=== PATIENT | female | born 1955 | race Two or more races ===

== ENCOUNTER 2020-02-16 16:00 | Inpatient (IN) | payer MEDICARE, MEDICAID ==
[~2020-02-16] VITALS: Ht 152.4 cm; Wt 85.5 kg
[2020-02-16] MEDS ORDERED: ACETAMINOPHEN 500 MG TAB PO ONE (16:15)
[2020-02-16 16:46] LABS: Hematocrit 21.4 % (36.0-46.0); Platelet Count (auto) 113 10^3/uL (140-450); Red Blood Cells 2.19 10^6/uL (4.0-5.20)
[2020-02-16 16:47] LABS: Hemoglobin 7.2 g/dL (12.2-16.2); Mean Corpuscular Hemoglobin 32.9 pg (28.0-32.0); Mean Corpuscular Hgb Conc. 33.8 g/dL (32.0-36.0); Mean Corpuscular Volume 97.3 fL (80.0-100.0); Red Cell Distribution Width 14.5 % (11.8-14.3)
[2020-02-16 17:01] LABS: Alanine Aminotransferase 15 U/L (13-56); Albumin 2.3 g/dL (3.4-5.0); Anion Gap 13 (5-15); Aspartate Aminotransferase 8 U/L (15-37); BUN/Creatinine Ratio 11.3; Calcium 7.6 mg/dL (8.5-10.1); Carbon Dioxide 23 mmol/L (21-32); Chloride 93 mmol/L (98-107); GFR African American 7 mL/min; GFR Non-African American 5 mL/min; Glucose 146 mg/dL (74-106); Potassium 4.8 mmol/L (3.5-5.1); Sodium 129 mmol/L (136-145)
[2020-02-16 17:06] LABS: Alkaline Phosphatase 65 U/L (45-117); Bilirubin, Total 0.3 mg/dL (0.2-1.0); Total Protein 6.5 g/dL (6.4-8.2)
[2020-02-16 17:09] LABS: Blood Urea Nitrogen 90 mg/dL (7-18)
[2020-02-16 17:33] LABS: White Blood Cell 0.4 10^3/uL (4.4-10.8)
[2020-02-16 17:34] LABS: Band Neutrophils % (manual) 0; Basophils % (manual) 0 (0.0-2.0); Blast Cells 0; Eosinophils % (manual) 9 (0-7); Lymphocytes % (manual) 67 (10.0-50.0); Metamyelocytes % 0; Monocytes % (manual) 15 (0-12); Myelocytes % 0; Promyelocytes % 0; Reactive Lymphocytes 2
[2020-02-16] MEDS ORDERED: SODIUM CHLORIDE 0.9% 500 ML IVB ONE (18:07)
[2020-02-16] MEDS ORDERED: ONDANSETRON HCL 4 MG/2 ML VIAL IV ONE (18:15)
[2020-02-16] MEDS ORDERED: MORPHINE SULF INJ 2 MG/ML SYRINGE 1ML IV ONE (18:15)
[2020-02-16] MEDS ORDERED: metroNIDAZOLE 500MG/100ML 100 ML IV ONE (19:45)
[2020-02-16] MEDS ORDERED: cefTRIAXone 1GM/50ML D5W 50 ML IV ONE (19:45)
[2020-02-16 19:46] LABS: INR 1.22 (0.9-1.15); Partial Thromboplastin Time 42.4 sec (23.64-32.05)
[2020-02-16 20:12] LABS: Amylase 27 U/L (25-115); Lipase 65 U/L (73-393); Magnesium 2.5 mg/dL (1.6-2.6)
[2020-02-16] MEDS ORDERED: ONDANSETRON HCL 4 MG/2 ML VIAL IV PRN (20:45)
[2020-02-16] MEDS ORDERED: DEXTROSE (50%) 50ML SYRG IV PRN (20:45)
[2020-02-16] MEDS ORDERED: HYDROcodone-ACET 5/325MG TAB PO PRN (20:45)
[2020-02-16] MEDS ORDERED: DOCUSATE SOD 100 MG CAP PO PRN (20:45)
[2020-02-16] MEDS: SODIUM CHLORIDE 0.9% 1,000 ML IV SCH (21:01)
[2020-02-16 23:15] VITALS: BP 118/41
[2020-02-16 23:20] VITALS: BP 128/41
--- NOTE | 2020-02-16 23:20 | NUR ---
Telemetry admit from ER DESTINEY NIEVESSIVA admitted to Telemetry unit after SBAR received. Patient oriented to Michelle Rosario, primary RN, unit, room, bed, and unit policies regarding patient care and visiting hours. Patient now on continuous telemetry monitoring, tele box # 59 and telemetry reading on arrival to unit is 101 . Patient placed on bedside oxygen, weighed by bedscale and encouraged to call if they need something. All questions and concerns addressed, patient verbalized understanding. Note:
[2020-02-16] MEDS: ACETAMINOPHEN 325 MG TAB PO PRN (23:22)
--- NOTE | 2020-02-16 23:22 | NUR ---
pt. t- 100.8, tylenol given po as ordered, cooling measures applied, blanket removed.
[2020-02-16] MEDS: ACCU-CHEK COMFORT CURVE STRIP VI SCH (23:42)
[2020-02-16] MEDS: InsuLIN REG 1unit/0.01ml Soln (100units/ml) SC SCH (23:42)
[2020-02-16] MEDS: metroNIDAZOLE 500MG/100ML 100 ML IV SCH (23:42)
[2020-02-17] VITALS (9 sets, daily range): BP systolic 104–118; BP diastolic 49–61
[2020-02-17] MEDS ORDERED: MULT-647 OR (00:41)
[2020-02-17] MEDS ORDERED: SEVE800T8 PO (00:41)
[2020-02-17] MEDS ORDERED: FOLI1TAB6 PO (00:41)
[2020-02-17] MEDS ORDERED: DOCU-94 PO (00:41)
[2020-02-17] MEDS ORDERED: PROC10TA2 PO (00:41)
[2020-02-17] MEDS ORDERED: WARF6TAB21 PO (00:41)
[2020-02-17] MEDS ORDERED: CALC0.5C PO (00:41)
[2020-02-17] MEDS ORDERED: MET50T PO (00:41)
[2020-02-17] MEDS ORDERED: ACET-1156 PO (00:41)
[2020-02-17] MEDS ORDERED: DEX4T PO (00:41)
[2020-02-17] MEDS ORDERED: ONDA-143 PO (00:41)
--- NOTE | 2020-02-17 01:17 | NUR ---
pt. t- 100.9, cooling measures continously, to keep monitor.
[2020-02-17] MEDS: MORPHINE SULF INJ 2 MG/ML SYRINGE 1ML IV PRN ×2 (04:04→21:35)
[2020-02-17] MEDS: metroNIDAZOLE 500MG/100ML 100 ML IV SCH ×3 (05:41→17:50)
[2020-02-17] MEDS: ACCU-CHEK COMFORT CURVE STRIP VI SCH ×3 (05:42→17:50)
[2020-02-17] MEDS: InsuLIN REG 1unit/0.01ml Soln (100units/ml) SC SCH ×3 (05:42→17:50)
[2020-02-17 05:47] LABS: Mean Corpuscular Volume 98.8 fL (80.0-100.0)
[2020-02-17 05:50] LABS: Hematocrit 18.8 % (36.0-46.0); Mean Corpuscular Hemoglobin 33.1 pg (28.0-32.0); Mean Corpuscular Hgb Conc. 33.5 g/dL (32.0-36.0); Platelet Count (auto) 79 10^3/uL (140-450); Red Cell Distribution Width 14.4 % (11.8-14.3)
[2020-02-17 06:00] LABS: BUN/Creatinine Ratio 10.8; Calcium 7.3 mg/dL (8.5-10.1); Potassium 4.8 mmol/L (3.5-5.1)
[2020-02-17 06:04] LABS: Hemoglobin 6.3 g/dL (12.2-16.2); White Blood Cell 0.4 10^3/uL (4.4-10.8)
[2020-02-17 06:06] LABS: Basophils % (manual) 0 (0.0-2.0); Blast Cells 0; Metamyelocytes % 0; Myelocytes % 0; Promyelocytes % 0; Reactive Lymphocytes 0
--- NOTE | 2020-02-17 06:11 | NUR ---
paged hospitalist re: pt. critical lab. hgb. 6.3, bun- 89, wbc- 0.4, waiting to call back.
--- NOTE | 2020-02-17 06:27 | NUR ---
hospitalist called back, made order and carried out.
--- NOTE | 2020-02-17 07:30 | NUR ---
Opening Shift Note Assuming care of patient at this time. Patient is awake and alert. Patient denies pain. Patient shows no signs or symptoms of distress or shortness of breath. Bed is locked and lowered with side rails up x2. Instructed patient on the plan of care for today and to call for assistance as needed. Call light within reach. Will continue to round hourly and as needed.
[2020-02-17 07:40] LABS: Band Neutrophils % (manual) 2; Eosinophils % (manual) 9 (0-7); Lymphocytes % (manual) 58 (10.0-50.0); Monocytes % (manual) 14 (0-12)
[2020-02-17] MEDS ORDERED: FILGRASTIM (TBO) 300 MCG/0.5 ML SYRG SC SCH (10:00)
[2020-02-17] MEDS: cefTRIAXone 1GM/50ML D5W 50 ML IV SCH (10:46)
[2020-02-17] MEDS: ACETAMINOPHEN 325 MG TAB PO PRN ×2 (11:15→17:50)
[2020-02-17] MEDS: PERITONEAL DIALYSIS 2.5% SOLN 2,000 ML IP SCH ×2 (12:00→18:30)
--- NOTE | 2020-02-17 12:00 | NUR ---
Peritoneal Dialysis Peritoneal dialysis done at this time. No fluid indwelling. Fluid given as ordered. Patient tolerated procedure well. No distress noted.
--- NOTE | 2020-02-17 12:00 | NUR ---
Peritoneal Dialysis Peritoneal Dialysis initiated. Patient had no initial output. Patient now has 1885 mL of fluid indwelling.
--- NOTE | 2020-02-17 12:00 | NUR ---
No blood administration Blood administration on hold at this time as patient currently has a fever that has increased after Tylenol administration. Will wait until temperature has decreased.
--- NOTE | 2020-02-17 13:02 | NUR ---
Transfer Spoke with Dr. Dudley regarding patient's family request to transfer patient to [facility]. Patient is unstable for transfer at this time due to patient having a Hgb of 6.3. Patient will need 2 units of blood. Spoke with son, Duane, regarding patient's transfer. Duane is aware of patient's status and is agreeable for patient to stay today and the process of being transferred being addressed tomorrow.
--- NOTE | 2020-02-17 14:59 | NUR ---
Blood Transfusion Blood Transfusion started at this time. Baseline vitals obtained.
--- NOTE | 2020-02-17 16:43 | NUR ---
Transfusion Ended Transfusion Ended at this time. Patient is uncomfortable and is having chills. Will notify Dr. Dudley.
--- NOTE | 2020-02-17 16:44 | NUR ---
Re: Transfusion Patient is beginning to have chills and fever is persisting. Notified Dr. Dudley. New orders given for Benadryl and next transfusion time.
[2020-02-17] MEDS ORDERED: diphenhdrAMINE HCL 50 MG/1 ML VL IV ONE (17:00)
[2020-02-17] MEDS: SODIUM CHLORIDE 0.9% 1,000 ML IV SCH (17:52)
--- NOTE | 2020-02-17 19:00 | NUR ---
OPENING NOTE Received report from day shift RN. Patient is A&O X's 4 with no s/s of distress and reports no pain at this time. Educated patient on POC and to use call light when in need of any type of assistance. Patient verbalized understanding. Bed is in lowest/locked position with side rails up X's 2 and call light is within reach of patient. Will continue care.
--- NOTE | 2020-02-17 19:35 | NUR ---
Peritoneal Dialysis Complete Peritoneal dialysis complete at this time. Patient had an output of 1840, weighed by dialysis scale. Next bag infused weighing in at 1880. Awaiting removal of that fluid in approximately 6 hours.
--- NOTE | 2020-02-17 19:36 | NUR ---
Closing Shift Note Patient resting in bed. No distress noted. Second round of peritoneal dialysis complete. casino shift manager RN aware to send patient's peritoneal fluid to micro for studies. Report given. Will endorse care to the night guard RN.
--- NOTE | 2020-02-17 21:10 | NUR ---
BLOOD TRANSFUSION blood transfusion started at this time. Baseline v.s obtained.
[2020-02-18] VITALS (7 sets, daily range): BP systolic 100–124; BP diastolic 51–63
[2020-02-18] MEDS: PERITONEAL DIALYSIS 2.5% SOLN 2,000 ML IP SCH ×6 (00:21→23:58)
[2020-02-18] MEDS: metroNIDAZOLE 500MG/100ML 100 ML IV SCH ×5 (00:21→23:48)
--- NOTE | 2020-02-18 00:30 | NUR ---
PERITONEAL DIALYSIS Removing peritoneal fluid at this time. Patient tolerating well. Will continue care.
--- NOTE | 2020-02-18 00:30 | NUR ---
PERITONEAL DIALYSIS REMOVAL patient had output of about 1700, weighed by dialysis scale. Next bag infusing weighing in at 1700. awaiting removal of that fluid in about 6 hours.
[2020-02-18] MEDS: ACCU-CHEK COMFORT CURVE STRIP VI SCH ×5 (00:45→23:59)
[2020-02-18] MEDS: MORPHINE SULF INJ 2 MG/ML SYRINGE 1ML IV PRN ×4 (03:48→22:19)
[2020-02-18] MEDS: SODIUM CHLORIDE 0.9% 1,000 ML IV SCH ×2 (05:22→23:35)
[2020-02-18] MEDS: InsuLIN REG 1unit/0.01ml Soln (100units/ml) SC SCH ×5 (05:23→23:58)
[2020-02-18 05:39] LABS: Platelet Count (auto) 87 10^3/uL (140-450); Red Cell Distribution Width 17.5 % (11.8-14.3)
[2020-02-18 05:41] LABS: Hematocrit 24.2 % (36.0-46.0); Hemoglobin 8.2 g/dL (12.2-16.2); Mean Corpuscular Hemoglobin 31.9 pg (28.0-32.0); Mean Corpuscular Volume 93.7 fL (80.0-100.0); Red Blood Cells 2.58 10^6/uL (4.0-5.20)
--- NOTE | 2020-02-18 05:41 | NUR ---
PD patient had output of about 1700. weighed by dialysis scale. Next bag to infuse weighing in about 1700. Awaiting removal of that fluid in 6 hours.
[2020-02-18 05:54] LABS: Calcium 7.2 mg/dL (8.5-10.1); Potassium 4.2 mmol/L (3.5-5.1)
[2020-02-18 06:00] LABS: Albumin 1.8 g/dL (3.4-5.0); BUN/Creatinine Ratio 9.8; Bilirubin, Total 0.3 mg/dL (0.2-1.0); Total Protein 5.4 g/dL (6.4-8.2)
[2020-02-18 06:06] LABS: White Blood Cell 1.2 10^3/uL (4.4-10.8)
--- NOTE | 2020-02-18 06:06 | NUR ---
CRITICAL WBC WBC at 1.2 improvement in lab. aware of critical WBC. Will inform day shift RN.
[2020-02-18 06:08] LABS: Basophils % (manual) 0 (0.0-2.0); Blast Cells 0; Promyelocytes % 0; Reactive Lymphocytes 0
--- NOTE | 2020-02-18 06:42 | NUR ---
patient refusing PD 0600 output was 1700, as weighed by dialysis scale. When about to infuse the 0600 PD, Patient said "no, I do not want to do this one anymore. It is making my abdomen too full." Educated patient on purpose of PD and the frequency of it. Patient verbalized understanding but still refusing. Spoke with patient's son on the phone at this time with patient. Son also educated patient, but patient continues to refuse at this time. Will inform day shift RN. Will continue care. FLUID TAKEN OUT. NO PD WAS INFUSED AT THIS TIME.
[2020-02-18 07:09] LABS: Band Neutrophils % (manual) 1; Eosinophils % (manual) 5 (0-7); Lymphocytes % (manual) 37 (10.0-50.0); Metamyelocytes % 1; Monocytes % (manual) 10 (0-12); Myelocytes % 1
--- NOTE | 2020-02-18 07:25 | NUR ---
Opening Shift Note Assumed care of patient, awake and alert. No S/S of distress/SOB or pain. Updated on POC and instructed to call for assistance PRN, patient verbalized understanding. Bed locked in lowest position, side rails up x2, call light within reach. Safety precautions in place. Will continue to monitor for changes Q1hr and PRN.
[2020-02-18] MEDS: cefTRIAXone 1GM/50ML D5W 50 ML IV SCH (09:28)
[2020-02-18] MEDS: FILGRASTIM(TBO) 480 MCG/0.8 ML SYRG SC SCH (09:29)
[2020-02-18] MEDS ORDERED: FILGRASTIM (TBO) 300 MCG/0.5 ML SYRG SC SCH (10:00)
--- NOTE | 2020-02-18 12:00 | NUR ---
PATIENT REFUSING PD Patient said "no, I do not want to do this one anymore. It is making my abdomen too full, my stomach hurts" Educated patient on purpose of PD. Patient verbalized understanding but still refusing. MD Hahn made aware. Will continue care.
[2020-02-18] MEDS: SEVELAMER 800 MG TAB PO SCH ×2 (12:18→18:57)
--- NOTE | 2020-02-18 12:36 | NUR ---
I faxed higher level of care order to [facility]-I also spoke with Dr. David Dudley regarding the plan of care.
[2020-02-18] MEDS ORDERED: WARF3TAB22 PO (16:22)
[2020-02-18] MEDS ORDERED: CALC0.25 PO (16:26)
[2020-02-18] MEDS ORDERED: CHOL1TAB16 PO (16:28)
[2020-02-18] MEDS ORDERED: LORA-352 PO (16:30)
[2020-02-18] MEDS ORDERED: [UNRECOGNIZED DRUG - CODE] SC (16:31)
[2020-02-18] MEDS ORDERED: GENT0.1C3 TOP (16:32)
--- NOTE | 2020-02-18 16:37 | NUR ---
I received a message from [facility] Transfer [facility], per Barbara their medical doctors are not accepting any transfers at this time due to over saturation. I relayed this information to Dr. David Dudley. I spoke with patient's son Duane and made him aware as well.
--- NOTE | 2020-02-18 16:43 | NUR ---
I spoke with nurse Melia and updated her on the status of the transfer request.
--- NOTE | 2020-02-18 23:59 | NUR ---
PERITONEAL DIALYSIS Patient agreed to have PD initiated at this time. Patient had no initial output. Weighed solution with the dialysis scale. weighs about 0525-2547.This is starting to indwell at this time.
[2020-02-19] MEDS: MORPHINE SULF INJ 2 MG/ML SYRINGE 1ML IV PRN ×3 (04:57→16:09)
[2020-02-19 05:00] VITALS: BP 112/72
[2020-02-19] MEDS: ACCU-CHEK COMFORT CURVE STRIP VI SCH ×2 (05:18→11:57)
[2020-02-19] MEDS: InsuLIN REG 1unit/0.01ml Soln (100units/ml) SC SCH ×2 (05:18→11:56)
--- NOTE | 2020-02-19 05:42 | NUR ---
PD COMPLETE Peritoneal dialysis complete at this time. Patient had an output of about 1650, weighed by dialysis scale.
--- NOTE | 2020-02-19 05:46 | NUR ---
PATIENT REFUSING 0600 DIALYSIS Patient is refusing dialysis at this time. Educated patient on purpose/ importance of receiving dialysis as scheduled. Patient verbalized understanding but continues to refuse. Patient says that she will do it again later after she eats. Will continue care and inform day shift RN.
[2020-02-19] MEDS: metroNIDAZOLE 500MG/100ML 100 ML IV SCH ×2 (05:51→11:34)
[2020-02-19] MEDS: PERITONEAL DIALYSIS 2.5% SOLN 2,000 ML IP SCH ×2 (05:51→11:56)
[2020-02-19 06:14] LABS: Hematocrit 26.5 % (36.0-46.0); Mean Corpuscular Hgb Conc. 33.9 g/dL (32.0-36.0); Mean Corpuscular Volume 94.4 fL (80.0-100.0); Platelet Count (auto) 104 10^3/uL (140-450); Red Cell Distribution Width 18.1 % (11.8-14.3); White Blood Cell 4.1 10^3/uL (4.4-10.8)
[2020-02-19 06:19] LABS: % Iron Saturation 42.7 % (15-50)
[2020-02-19 06:22] LABS: Potassium 4.3 mmol/L (3.5-5.1)
[2020-02-19 06:40] LABS: Albumin 1.8 g/dL (3.4-5.0); BUN/Creatinine Ratio 7.9; Bilirubin, Total 0.4 mg/dL (0.2-1.0); Calcium 7.6 mg/dL (8.5-10.1); Total Protein 5.6 g/dL (6.4-8.2)
[2020-02-19 06:51] LABS: Basophils % (manual) 0 (0.0-2.0); Blast Cells 0; Promyelocytes % 0; Reactive Lymphocytes 0
--- NOTE | 2020-02-19 07:05 | NUR ---
OPENING NOTE Assumed responsibility of patient at 0700. Respiratory sounds clear, equal bilaterally and unlabored. Patient verbalized that she is not having any pain at this time. Bed locked in lowest position, side rails up x 3 and call light is within reach. Will continue to monitor.
[2020-02-19 07:27] LABS: Band Neutrophils % (manual) 9; Eosinophils % (manual) 3 (0-7); Lymphocytes % (manual) 7 (10.0-50.0); Metamyelocytes % 1; Monocytes % (manual) 10 (0-12); Myelocytes % 1
[2020-02-19 08:54] VITALS: BP 106/59
[2020-02-19] MEDS: SEVELAMER 800 MG TAB PO SCH ×2 (09:37→11:34)
[2020-02-19] MEDS: cefTRIAXone 1GM/50ML D5W 50 ML IV SCH (09:39)
[2020-02-19] MEDS: FILGRASTIM(TBO) 480 MCG/0.8 ML SYRG SC SCH (09:39)
--- NOTE | 2020-02-19 09:40 | NUR ---
PAIN MANAGEMENT PATIENT VERBALIZED A SEVERE LEVEL OF PAIN INTENSITY. ADMINISTERED PRN PAIN MEDICATION PER ORDERS. WILL REASSESS PATIENT'S PAIN LEVEL WITHIN THE HOUR.
--- NOTE | 2020-02-19 10:30 | NUR ---
PAIN REASSESSMENT AFTER PAIN MEDICATION WAS GIVEN, PATIENT IS VERBALIZING A DECREASE OF PAIN LEVEL FROM SEVERE TO MILD PAIN AT THIS TIME. WILL CONTINUE TO MONITOR.
--- NOTE | 2020-02-19 11:58 | NUR ---
Peritoneal Dialysis Peritoneal Dialysis initiated. Patient had no initial output. Patient now has 1750 mL of fluid indwelling.
--- NOTE | 2020-02-19 12:01 | NUR ---
ASSESSMENT OUTER DIAMETER GRINDER SPOKE WITH PT'S SON ELEONORA GRECO [phone] TO OBTAIN INFORMATION FOR INITIAL ASSESSMENT. PT IS A 64 YR OLD [place] SPEAKING FEMALE ADMITTED FOR SEPSIS, ESRD. SHE HAS A HX OF CVA IN AUG 2019, BREAST CA, ANXIETY. PT IS MODERATE ASSIST AT HOME, NO DME. HER SON ELEONORA IS HER COIN MACHINE MECHANIC CAREGIVER THROUGH [facility]. HE MANAGES ALL HER AFFAIRS. HE IS LISTED HER DECISION MAKER ON HER AHCD. PT ALSO RESIDES WITH HER SPOUSE ELEONORA OBREGON. HER DAUGHTER ANETTE LIVES LOCALLY AND IS ALSO SUPPORTIVE AND AVAILABLE TO ASSIST PT. PT'S PCP IS DR. Emerita MATHUR, ONCOLOGIST IS [facility] AT [facility]. SHE CONTINUES TO GET TREATMENT THERE AND SON STATES SHE IS COPING WELL. SHE IS NOT ON MEDS FOR ANXIETY, PT IS BEING PROVIDED WITH A THERAPIST THROUGH [facility]. PT GOES TO DIALYSIS M,W,F THROUGH [facility]. PLAN IS FOR PT TO DC HOME WITH FAMILY, SON IS A FORMER NURSE. NO OTHER SS NEEDS IDENTIFIED. SS TO REMAIN AVAILABLE NEEDED. Addendum: 02/19/20 at 1210 by HALIMA BLUE SS Amended: Links added.
[2020-02-19 13:00] VITALS: BP 116/63
[2020-02-19] MEDS: SODIUM CHLORIDE 0.9% 1,000 ML IV SCH (15:14)
[2020-02-19 16:15] VITALS: BP 116/63
--- NOTE | 2020-02-19 16:45 | NUR ---
PD COMPLETE Peritoneal dialysis complete at this time. Patient had an output of about 7323-7957, weighed by dialysis scale.
[2020-02-19 17:00] VITALS: BP 142/77
--- NOTE | 2020-02-19 17:25 | NUR ---
DISCHARGE HOME Discharge instructions given as ordered with environmental auditor at bedside. Encourage to follow up with PMD as instructed. All questions and concerns addressed. Patient verbalized understanding. Medication reconciliation form completed and copy given to patient. Telemetry unit returned to ICU. Heparin flush to maribel cath and removed with clean technique, patient tolerated well. Patient taken to vehicle via wheelchair with all personal belongings, accompanied by staff. No distress noted at time of departure.
== END 2020-02-19 17:25 | disposition home or self-care (01) | DRG 871 ==
LOC: ER 16:00 → TELE 16:01 → TELE-WESTW 22:43
PROVIDERS: ADMIT Hospitalist; ATTEND Family Medicine
PROC: 30233N1 Transfusion of Nonautologous Red Blood Cells into Peripheral Vein, Percutaneous Approach (ICD-10-PCS; principal; 2020-02-17)
PROC: 3E1M39Z Irrigation of Peritoneal Cavity using Dialysate, Percutaneous Approach (ICD-10-PCS; 2020-02-18)
DX: A41.9 Sepsis, unspecified organism (principal); N18.6 End stage renal disease; D61.810 Antineoplastic chemotherapy induced pancytopenia; K65.9 Peritonitis, unspecified; K57.92 Diverticulitis of intestine, part unspecified, without perforation or abscess without bleeding; E87.1 Hypo-osmolality and hyponatremia; I12.0 Hypertensive chronic kidney disease with stage 5 chronic kidney disease or end stage renal disease; K80.20 Calculus of gallbladder without cholecystitis without obstruction; D64.9 Anemia, unspecified; J40 Bronchitis, not specified as acute or chronic; E66.9 Obesity, unspecified; E78.5 Hyperlipidemia, unspecified; F41.9 Anxiety disorder, unspecified; N63.20 Unspecified lump in the left breast, unspecified quadrant; F32.9 Major depressive disorder, single episode, unspecified; T45.1X5A Adverse effect of antineoplastic and immunosuppressive drugs, initial encounter; Z20.828 Contact with and (suspected) exposure to other viral communicable diseases; E78.00 Pure hypercholesterolemia, unspecified; Z99.2 Dependence on renal dialysis; Z88.1 Allergy status to other antibiotic agents; Z92.21 Personal history of antineoplastic chemotherapy; Z85.3 Personal history of malignant neoplasm of breast; Z80.9 Family history of malignant neoplasm, unspecified; Z82.49 Family history of ischemic heart disease and other diseases of the circulatory system; Z79.899 Other long term (current) drug therapy; Y92.89 Other specified places as the place of occurrence of the external cause; C50.912 Malignant neoplasm of unspecified site of left female breast
CPT/HCPCS: 36415; 71045; 74176; 80048; 80053; 82150; 82306; 82728; 82962; 83540; 83550; 83605; 83690; 83735; 83880; 83970; 84100; 84484; 85007; 85027; 85610; 85730; 86850; 86900; 86901; 86920; 87040; 87077; 87186; 87205; 89051; 93005; G0378; J0696; J1447; J1642; J2405; J3490